=== PATIENT | female | born 1990 | race Caucasian/White ===

== ENCOUNTER 2019-04-25 19:40 | Emergency (ER) | payer MEDICAID ==
[~2019-04-25] VITALS: Ht 170.2 cm; Wt 54.0 kg
[2019-04-25 22:35] VITALS: BP 120/69
== END 2019-04-25 22:40 | disposition home or self-care (01) ==
LOC: ER 19:40
DX: J36 Peritonsillar abscess (principal)
CPT/HCPCS: 87070; 87430; 99283; Z7610